=== PATIENT | male | born 1955 | race Caucasian/White ===

== ENCOUNTER 2020-08-16 08:28 | Inpatient (IN) | payer MEDICARE ==
[~2020-08-16] VITALS: Ht 180.3 cm; Wt 87.6 kg
--- NOTE | 2020-08-16 09:20 | NUR ---
PULSE OX IN PLACE, RA SAT RANGING FROM 92-94%. AIRWAY PATENT, PT COUGHING FREQUENTLY BUT ABLE TO ANSWER QUESTIONS, GENERAL DISCOMFORT TO THROAT AREA. CALL LIGHT WITHIN REACH. PT UPDATED ON POC.
[2020-08-16] MEDS ORDERED: ALBU8.5H8 INH (09:24)
[2020-08-16 10:30] LABS: BASOPHILS % (AUTO) 1 % (0-1); EOSINOPHILS % (AUTO) 2 % (1-7); LYMPHOCYTES % (AUTO) 14 % (22-44); MEAN CORPUSCULAR HEMOGLOBIN 30.3 pg (27.5-34.5); MEAN CORPUSCULAR HGB CONC 33.7 g/dL (33.2-36.2); MEAN PLATELET VOLUME 8.7 fL (7.4-10.4); MONOCYTES % (AUTO) 8 % (2-9); NEUTROPHILS % (AUTO) 75 % (42-75); PLATELET COUNT 164 x10^3/uL (130-400); RED BLOOD COUNT 4.76 x10^6/uL (4.38-5.82); RED CELL DISTRIBUTION WIDTH 13.6 % (9.4-14.8)
[2020-08-16] MEDS ORDERED: ALBUTEROL SULFATE 2.5 MG/3 ML NPPB ONE (10:30)
[2020-08-16] MEDS ORDERED: SODIUM CHLORIDE FLUSH 10ML SYR IVF ONE (10:30)
[2020-08-16] MEDS ORDERED: PIPERACILLIN/TAZO 3.375 GM in DEXTROSE 5% 50 ML IVPB ONE (10:30)
[2020-08-16 10:34] LABS: MD NO
[2020-08-16] MEDS ORDERED: ALBUTEROL SULFATE 2.5MG/0.5ML ONE ×2 (10:35→10:38)
[2020-08-16] MEDS ORDERED: PIPERACILLIN/TAZO/PMX 3.375GM 50 ML ONE (10:38)
[2020-08-16 10:41] LABS: ALBUMIN 3.9 g/dL (3.4-5.0); ANION GAP 5 mmol/L (5-15); CALCIUM 8.9 mg/dL (8.5-10.1); CHLORIDE 108 mmol/L (98-107); CREATININE 1.11 mg/dL (0.7-1.3)
[2020-08-16] MEDS ORDERED: FENTANYL PF 100 MCG/2ML ONE ×2 (10:52→12:34)
[2020-08-16] MEDS ORDERED: MIDAZOLAM 1 MG/ML, 2ML ONE ×2 (10:52→12:34)
--- NOTE | 2020-08-16 11:00 | NUR ---
PT PLACED ON ALL ROOM MONITORING. IV PLACED BY MEDIC STUDENT. PROCEDURAL SEDATION SET UP IN PLACE. RT, RN X 2, EMT, AND DR AT BS.
--- NOTE | 2020-08-16 11:36 | NUR ---
dr moore spoke with dr pardo
--- NOTE | 2020-08-16 11:44 | NUR ---
BRONCHOSPOY VIA A TOTAL OF 4MG OF VERSED AND 200MCG OF FENTANYL UNSUCCESSFUL IN RETREIVING MASS OF FOOD DESPITE PULM/RT'S EFFORTS. PLAN TO GO TO THE OR FOR INTUBATION THEN RETRIEVAL BY PULM OR OTHER AVAILABLE SPECIALIST.
--- NOTE | 2020-08-16 11:45 | NUR ---
REPORT TO ESTHELA PERALTA. PT TO BE ADMITTED TO OR, THIS COMMUNICATED TO ESTHELA.
[2020-08-16] MEDS ORDERED: LIDOCAINE 4% TOPICAL SOLUTION 50 ML ONE (12:00)
[2020-08-16] MEDS ORDERED: MIDAZOLAM 1 MG/ML, 5ML IVPush ONE (12:00)
[2020-08-16] MEDS ORDERED: LIDOCAINE GEL 2%, 5ML ONE (12:00)
[2020-08-16] MEDS ORDERED: FENTANYL PF 250 MCG/5ML IVPush ONE (12:00)
--- NOTE | 2020-08-16 12:14 | NUR ---
RAPID COVID SWAB OBTAINED PER GUIDELINES AND WALKED TO LAB PATIENT FULLY RECOVERED AND DOING WELL DESPITE CONTINUED COUGHING
[2020-08-16] MEDS ORDERED: CHLORHEXIDINE 15 ML UDC ONE (12:49)
[2020-08-16] MEDS ORDERED: EPINEPHRINE TOPICAL SOLN 1 MG/ML, 30ML ONE (12:59)
[2020-08-16] MEDS ORDERED: PROPOFOL 50 ML ONE ×2 (13:06→14:56)
[2020-08-16] MEDS ORDERED: ROCURONIUM 10 MG/ML,10ML ONE (13:24)
[2020-08-16] MEDS ORDERED: DEXAMETHASONE 4 MG/ML, 5ML ONE (13:24)
[2020-08-16] MEDS ORDERED: SUCCINYLCHOLINE 20 MG/ML, 10ML ONE (13:24)
[2020-08-16] MEDS ORDERED: OXYcodone 5 MG/5 ML ORAL.SOL UDC PO PRN (13:30)
[2020-08-16] MEDS ORDERED: HYDROcodone/APAP 7.5-325MG/15ML UDC PO PRN (13:30)
[2020-08-16] MEDS ORDERED: HYDROmorphone 1 MG/ML, 1ML INJ IVPush PRN (13:30)
[2020-08-16] MEDS ORDERED: ONDANSETRON 2MG/ML, 2ML IVPush PRN (13:30)
[2020-08-16] MEDS ORDERED: FENTANYL PF 100 MCG/2ML IV PRN (13:30)
[2020-08-16] MEDS ORDERED: HYDROmorphone 1 MG/ML, 1ML INJ ONE (16:36)
[2020-08-16 19:01] VITALS: BP 124/73
[2020-08-16] MEDS ORDERED: MELATONIN 5 MG TABLET PO PRN (21:30)
[2020-08-16] MEDS ORDERED: DOCUSATE 100 MG CAPSULE PO PRN (21:30)
[2020-08-16] MEDS ORDERED: ACETAMINOPHEN 325 MG TABLET PO PRN (21:30)
[2020-08-16] MEDS ORDERED: LIDODERM 5% PATCH TD PRN (21:30)
[2020-08-16] MEDS: PIPERACILLIN/TAZO 3.375 GM in DEXTROSE 5% 50 ML IV SCH (22:12)
[2020-08-17 02:00] VITALS: BP 118/67
[2020-08-17] MEDS ORDERED: ALBUTEROL HFA 90 MCG/SPRAY INH PRN (02:00)
[2020-08-17] MEDS: PIPERACILLIN/TAZO 3.375 GM in DEXTROSE 5% 50 ML IV SCH ×4 (04:08→21:33)
[2020-08-17 05:12] LABS: BASOPHILS % (AUTO) 0 % (0-1); EOSINOPHILS % (AUTO) 0 % (1-7); LYMPHOCYTES % (AUTO) 4 % (22-44); MD NO; MEAN CORPUSCULAR HEMOGLOBIN 30.5 pg (27.5-34.5); MEAN CORPUSCULAR HGB CONC 33.9 g/dL (33.2-36.2); MEAN PLATELET VOLUME 9.3 fL (7.4-10.4); MONOCYTES % (AUTO) 4 % (2-9); NEUTROPHILS % (AUTO) 93 % (42-75); PLATELET COUNT 141 x10^3/uL (130-400); RED BLOOD COUNT 4.28 x10^6/uL (4.38-5.82); RED CELL DISTRIBUTION WIDTH 13.4 % (9.4-14.8)
[2020-08-17 05:22] LABS: CHLORIDE 110 mmol/L (98-107)
[2020-08-17 05:28] LABS: ANION GAP 5 mmol/L (5-15); CALCIUM 8.6 mg/dL (8.5-10.1)
[2020-08-17 09:08] VITALS: BP 122/71
[2020-08-17 13:24] VITALS: BP 114/69
[2020-08-17] MEDS: methylPREDNISolone SOD SUCC 125 MG/2 ML IVPush SCH ×2 (16:15→21:33)
[2020-08-17 21:13] VITALS: BP 135/80
[2020-08-17] MEDS ORDERED: GUAIFENESIN/COD200MG-20MG/10ML LIQUID PO PRN (23:00)
[2020-08-18] MEDS: methylPREDNISolone SOD SUCC 125 MG/2 ML IVPush SCH (03:31)
[2020-08-18] MEDS: PIPERACILLIN/TAZO 3.375 GM in DEXTROSE 5% 50 ML IV SCH ×4 (03:31→23:10)
[2020-08-18 03:55] VITALS: BP 134/79
[2020-08-18 05:22] LABS: MEAN CORPUSCULAR HEMOGLOBIN 30.4 pg (27.5-34.5); MEAN CORPUSCULAR HGB CONC 33.8 g/dL (33.2-36.2); MEAN PLATELET VOLUME 9.5 fL (7.4-10.4); PLATELET COUNT 152 x10^3/uL (130-400); RED BLOOD COUNT 4.26 x10^6/uL (4.38-5.82); RED CELL DISTRIBUTION WIDTH 13.5 % (9.4-14.8)
[2020-08-18 05:26] LABS: ANION GAP 5 mmol/L (5-15); CALCIUM 8.8 mg/dL (8.5-10.1); CHLORIDE 109 mmol/L (98-107); CREATININE 1.16 mg/dL (0.7-1.3)
[2020-08-18 06:06] LABS: MD YES
[2020-08-18 06:08] LABS: BAND#(MANUAL) 0.26 x10^3/uL; BANDS%(MANUAL) 3 % (0-7); LYMPH#(MANUAL) 0.35 x10^3/uL (1-3.4); LYMPHS% (MANUAL) 4 % (22-44); MONOS#(MANUAL) 0.09 x10^3/uL (0.3-2.7); MONOS% (MANUAL) 1 % (2-9); SEGS% (MANUAL) 92 % (42-75)
[2020-08-18 06:09] LABS: OVALOCYTES 1+
[2020-08-18 06:10] LABS: <PLATELET ESTIMATE> ADEQUATE; <PLT MORPHOLOGY> NORMAL PLT MORPH
[2020-08-18 07:00] VITALS: BP 137/77
[2020-08-18 13:47] VITALS: BP 142/74
[2020-08-18] MEDS: INSULIN LISPRO 100 UNITS/ML, PEN SQ-INSULIN SCH ×2 (16:00→21:00)
[2020-08-18] MEDS: methylPREDNISolone SOD SUCC 125 MG/2 ML IV SCH ×2 (17:08→23:10)
[2020-08-18 19:15] VITALS: BP 139/83
[2020-08-19 03:55] VITALS: BP 132/79
[2020-08-19] MEDS: PIPERACILLIN/TAZO 3.375 GM in DEXTROSE 5% 50 ML IV SCH ×2 (04:22→10:14)
[2020-08-19 05:11] LABS: BASOPHILS % (AUTO) 0 % (0-1); EOSINOPHILS % (AUTO) 0 % (1-7); LYMPHOCYTES % (AUTO) 6 % (22-44); MEAN CORPUSCULAR HEMOGLOBIN 30.6 pg (27.5-34.5); MEAN PLATELET VOLUME 9.3 fL (7.4-10.4); MONOCYTES % (AUTO) 2 % (2-9); NEUTROPHILS % (AUTO) 92 % (42-75); PLATELET COUNT 151 x10^3/uL (130-400); RED BLOOD COUNT 4.22 x10^6/uL (4.38-5.82); RED CELL DISTRIBUTION WIDTH 13.9 % (9.4-14.8)
[2020-08-19 05:14] LABS: MD NO
[2020-08-19 05:22] LABS: ANION GAP 7 mmol/L (5-15); CALCIUM 8.4 mg/dL (8.5-10.1); CHLORIDE 109 mmol/L (98-107)
[2020-08-19 05:24] LABS: CREATININE 1.15 mg/dL (0.7-1.3)
[2020-08-19] MEDS: INSULIN LISPRO 100 UNITS/ML, PEN SQ-INSULIN SCH ×2 (07:00→11:00)
[2020-08-19 07:08] VITALS: BP 150/87
[2020-08-19] MEDS: methylPREDNISolone SOD SUCC 125 MG/2 ML IV SCH (08:23)
[2020-08-19 12:50] VITALS: BP 149/89
[2020-08-19] MEDS ORDERED: AMOX1TAB64 PO (14:22)
[2020-08-19] MEDS ORDERED: PANT40GR PO (14:25)
[2020-08-19] MEDS ORDERED: PRED10TA PO (14:30)
== END 2020-08-19 16:15 | disposition home or self-care (01) | DRG 205 ==
LOC: ED 09:17 → EDIP 10:40 → 4WST 17:49 → DCLOUNGE 08-19 16:08
PROVIDERS: ADMIT Family Medicine; ATTEND Internal Medicine
PROC: 0BJ08ZZ Inspection of Tracheobronchial Tree, Via Natural or Artificial Opening Endoscopic (ICD-10-PCS; 2020-08-16)
PROC: 0BC38ZZ Extirpation of Matter from Right Main Bronchus, Via Natural or Artificial Opening Endoscopic (ICD-10-PCS; principal; 2020-08-16 12:30)
DX: T17.520A Food in bronchus causing asphyxiation, initial encounter (principal); J96.01 Acute respiratory failure with hypoxia; J69.0 Pneumonitis due to inhalation of food and vomit; J45.901 Unspecified asthma with (acute) exacerbation; N20.0 Calculus of kidney; N28.1 Cyst of kidney, acquired; Z20.822 Contact with and (suspected) exposure to COVID-19; Z87.01 Personal history of pneumonia (recurrent)
CPT/HCPCS: 31622; 36415; 70490; 71046; 71250; 80048; 82040; 82962; 83605; 83735; 85025; 87040; 87635; 93005; 96374; G0378; J1100; J1170; J2250; J2543; J2704; J3010; J7613; J0330; J2930